=== PATIENT | male | born 1950 | race Caucasian/White ===

== ENCOUNTER → 2024-03-27 09:09 | Outpatient (REF) | payer OTHER, MEDICARE, SELFPAY ==
[2024-03-27 12:24] LABS: % Basophils 1.6 % (0-2); % Eosinophils 2.2 % (0-6); % Immature Granulocytes 0.6 % (0-0.5); % Lymphocytes 21.8 % (20.5-51.1); % Monocytes 10.4 % (1.7-9.3); % Neutrophils 63.4 % (42.2-75.2); Absolute Basophils 0.1 10^3/uL (0-0.2); Absolute Eosinophils 0.2 10^3/uL (0-0.7); Absolute Lymphocytes 1.5 10^3/uL (1.2-3.4); Absolute Monocytes 0.7 10^3/uL (0.1-0.6); Absolute Neutrophils 4.3 10^3/uL (1.4-6.5); Hematocrit 48.6 % (39.0-52.0); Hemoglobin 16.1 g/dL (13.0-18.0); Mean Corp Hgb Conc. 33.1 g/dL (33.0-37.0); Mean Corpuscular Hgb 29.9 pg (27.0-31.0); Mean Corpuscular Volume 90.2 fL (80.0-94.0); Mean Platelet Volume 10.5 fL (7.4-10.4); Nucleated Red Blood Cells % 0 % (-); Platelet Count 246 10^3/uL (130-400); Red Blood Cell Count 5.39 10^6/uL (4.70-6.10); Red Cell Dist. Width 12.5 % (11.5-14.5); White Blood Cell Count 6.8 10^3/uL (4.8-10.8)
[2024-03-27 12:40] LABS: ALT (SGPT) 21 U/L (0-50); AST (SGOT) 25 U/L (17-59); Albumin 4.4 g/dl (3.5-5.0); Alkaline Phosphatase 62 U/L (38-126); Blood Urea Nitrogen 22 mg/dl (9-20); Calcium 9.5 mg/dl (8.4-10.2); Carbon Dioxide 27 mmol/L (22-30); Chloride 100 mmol/L (98-107); Glucose 190 mg/dl (70-99); HDL Cholesterol 57 mg/dl; LDL Cholesterol, Calculated 138 mg/dl; Potassium 4.2 mmol/L (3.5-5.1); Sodium 137 mmol/L (135-145); Total Bilirubin 0.5 mg/dl (0.2-1.3); Total Cholesterol 223 mg/dl (50-199); Total Protein 6.8 g/dl (6.3-8.2); Triglyceride 143 mg/dl (10-149); Very Low Density Lipoprotein 28 mg/dl (0-30); eGFR > 60.00
[2024-03-27 12:58] LABS: Urine Albumin Trace (Neg - Trace); Urine Bilirubin Negative (Negative); Urine Character Clear (Clear); Urine Color Yellow; Urine Glucose Negative (Negative); Urine Ketone Trace (Negative); Urine Leukocyte Negative (Negative); Urine Nitrite Negative (Negative); Urine Occult Blood Negative (Negative); Urine Specific Gravity 1.025 (<1.030); Urine Urobilinogen Negative (Neg - 1+)
[2024-03-27 13:08] LABS: PSA, Total - Screen 0.79 ng/ml (0.0-4.0); TSH Reflex To Free T4 4.76 uIU/ml (0.47-4.68)
[2024-03-27 13:35] LABS: Free T4 0.81 ng/dl (0.78-2.19)
[2024-03-27 13:43] LABS: Folate 7.2 ng/ml (2.76-20); Vitamin B12 255 pg/ml (239-931)
[2024-03-27 14:04] LABS: Glycohemoglobin (HgbA1c) 7.3 % (4.0-5.6)
[2024-03-27 15:51] LABS: Microalbumin/creatinine Ratio 5.4 mg/g
== END ==
LOC: HWLAB 09:09
PROVIDERS: ATTENDING PHYSICIAN Nurse Practitioner Adult Health; REFERRING PHYSICIAN Ophthalmology
DX: R41.3 Other amnesia (principal); Z00.01 Encounter for general adult medical examination with abnormal findings; E11.9 Type 2 diabetes mellitus without complications; Z12.5 Encounter for screening for malignant neoplasm of prostate
CPT/HCPCS: 36415; 80053; 80061; 81003; 82043; 82570; 82607; 82746; 83036; 84439; 84443; 85025; 86780; G0103